=== PATIENT | female | born 1940 | race Caucasian/White ===

== ENCOUNTER 2016-08-20 06:03 | Emergency (ER) | payer MEDICARE ==
[2016-08-20] MEDS ORDERED: Iohexol 240 (50 ml) PO STA (06:30)
[2016-08-20] MEDS ORDERED: Sodium Chloride 0.9% 1,000 ML IV ONE (06:30)
--- NOTE | 2016-08-20 06:41 | C.PDOC ---
Time Seen by Provider: 08/20/16 06:21 Chief Complaint (Nursing): Abdominal Pain History Per: Patient Onset/Duration Of Symptoms: Hrs (3) Current Symptoms Are (Timing): Still Present Severity: Moderate Location Of Pain/Discomfort: RLQ, LLQ, Suprapubic Associated Symptoms: Nausea, Vomiting, Diarrhea Alleviating Factors: None Last Bowel Movement: Today Additional History Per: Prior Records Past Medical History Reviewed: Historical Data, Nursing Documentation, Vital Signs Vital Signs: Last Vital Signs Temp 97.3 F L 08/20/16 06:14 Pulse 70 08/20/16 06:14 Resp 18 08/20/16 06:14 BP 151/77 H 08/20/16 06:14 Pulse Ox 99 08/20/16 06:41 - Medical History PMH: HTN, Hypercholesterolemia Other Surgeries: Colectomy due to colon CA. Family History: States: Unknown Family Hx - Social History Hx Tobacco Use: No Hx Alcohol Use: No Hx Substance Use: No - Immunization History Hx Influenza Vaccination: No Hx Pneumococcal Vaccination: No Review Of Systems Except As Marked, All Systems Reviewed And Found Negative. Constitutional: Negative for: Fever, Weakness Cardiovascular: Negative for: Chest Pain Respiratory: Negative for: Shortness of Breath Gastrointestinal: Positive for: Nausea, Vomiting, Abdominal Pain, Diarrhea, Hematochezia. Negative for: Hematemesis Genitourinary: Negative for: Dysuria Musculoskeletal: Negative for: Neck Pain, Back Pain Skin: Negative for: Rash Neurological: Negative for: Weakness, Numbness, Seizures, Altered Mental Status Physical Exam - Physical Exam Appears: Non-toxic, No Acute Distress Skin: Normal Color, Warm, Dry, No Rash Head: Atraumatic, Normacephalic Eye(s): bilateral: PERRL, EOMI Neck: Normal ROM, Supple Cardiovascular: Rhythm Regular Respiratory: Normal Breath Sounds, No Accessory Muscle Use Gastrointestinal/Abdominal: Soft, Tenderness (lower) Back: No CVA Tenderness Extremity: Normal ROM Neurological/Psych: Oriented x3, Normal Motor, Normal Sensation ED Course And Treatment - Laboratory Results Result Diagrams: 08/20/16 06:39 O2 Sat by Pulse Oximetry: 99 Pulse Ox Interpretation: Normal Disposition - Disposition Disposition Time: 06:54 Condition: FAIR - Clinical Impression Clinical Impression: Abdominal pain Physician Patient Turnover Patient Signed Over To: Inge Rm Handoff Comments: to f/up labs and CT abd/pelvis.
[2016-08-20] MEDS ORDERED: Morphine 4 MG/ML VIAL ONE (06:42)
[2016-08-20] MEDS ORDERED: Iohexol 240 (50 ml) ONE (06:42)
[2016-08-20] MEDS ORDERED: Sodium Chloride 0.9% 1,000 ML ONE (06:43)
[2016-08-20 06:49] LABS: BASO # 0.1 K/uL (0.0-0.2); BASO % 0.3 % (0.0-2.0); EOS % 0.2 % (0.0-4.0); HEMATOCRIT 38.5 % (34.0-47.0); LYMPH # 1.7 K/uL (1.0-4.3); LYMPH % 10.7 % (20.0-40.0); MEAN CELL VOLUME 90.1 fL (81.0-99.0); MEAN CORPUSCULAR HEMOGLOBIN 30.2 pg (27.0-31.0); MEAN CORPUSCULAR HGB CONC 33.5 g/dL (33.0-37.0); MEAN PLATELET VOLUME 7.4 fL (7.2-11.7); MONO # 0.7 K/uL (0.0-0.8); MONO % 4.5 % (0.0-10.0); RED CELL DISTRIBUTION WIDTH 12.7 % (11.5-14.5); WHITE BLOOD COUNT 15.6 K/uL (4.8-10.8)
[2016-08-20 06:50] LABS: CHLORIDE 102 mmol/L (98-107); SODIUM 139 mmol/L (132-148)
[2016-08-20 06:52] LABS: GFR AFRICAN-AMERICAN > 60
[2016-08-20 06:53] LABS: ALB/GLOB RATIO 1.5 (1.0-2.1); ALKALINE PHOSPHATASE 70 U/L (38-126); ALT/SGPT 26 U/L (9-52); AST/SGOT 33 U/L (14-36); BILIRUBIN,TOTAL 0.5 mg/dL (0.2-1.3); BLOOD UREA NITROGEN 28 mg/dL (7-17); CALCIUM 9.2 mg/dl (8.6-10.4); CARBON DIOXIDE 25 mmol/L (22-30); GLUCOSE,RANDOM 96 mg/dL (65-105); TOTAL PROTEIN 7.5 g/dL (6.3-8.3)
[2016-08-20 07:00] LABS: INR 0.9
[2016-08-20] MEDS ORDERED: Iodixanol 320 MG/ML 100 ML BOTTLE IV ONE (08:36)
--- NOTE | 2016-08-20 09:26 | CT ---
PROCEDURE: CT Abdomen and Pelvis with contrast HISTORY: abd pain, N/V/D. h/o colectomy due to colon CA. COMPARISON: None. TECHNIQUE: Contrast dose: 100 cc of Visipaque Radiation dose: Total exam DLP = 438 mGy-cm. This CT exam was performed using one or more of the following dose reduction techniques: Automated exposure control, adjustment of the mA and/or kV according to patient size, and/or use of iterative reconstruction technique. FINDINGS: LOWER THORAX: Unremarkable. LIVER: Unremarkable. No gross lesion or ductal dilatation. GALLBLADDER AND BILE DUCTS: Unremarkable. PANCREAS: Unremarkable. No gross lesion or ductal dilatation. SPLEEN: Unremarkable. ADRENALS: Unremarkable. No mass. KIDNEYS AND URETERS: Unremarkable. No hydronephrosis. No solid mass. VASCULATURE: Unremarkable. No aortic aneurysm. BOWEL: There is mural thickening in the transverse colon which lies low in the pelvis. This can be seen on coronal image 43 and axial image 60. The remainder of the transverse and descending colon is not opacified with contrast and more difficult to evaluate. Findings are suspicious for colitis. A neoplastic lesion is less likely. APPENDIX: Normal appendix. PERITONEUM: Unremarkable. No free fluid. No free air. LYMPH NODES: Unremarkable. No enlarged lymph nodes. BLADDER: Unremarkable. REPRODUCTIVE: Unremarkable. BONES: No acute fracture. OTHER FINDINGS: None. IMPRESSION: Mural thickening in the transverse colon most consistent with colitis. Neoplastic lesion possible but less likely. See comments
[2016-08-20 10:29] VITALS: BP 119/52; PULSE 80; RESP 16; TEMP 97.8; O2SAT 97
== END 2016-08-20 10:29 | disposition home or self-care (01) ==
LOC: C.ER 06:03 → SUPCPDRO 06:03 → C.ER 10:29
DX: R10.32 Left lower quadrant pain (principal); R10.31 Right lower quadrant pain
CPT/HCPCS: 74177; 80053; 83690; 85025; 85610; 85730; 96361; 96374; 96375; 99285; C9113; J2270; J2405; J7040; Q9966; Q9967